=== PATIENT | female | born 1980 | race Caucasian/White ===

== ENCOUNTER 2024-01-16 12:46 | Outpatient (CLI) | payer BC, SELFPAY ==
--- NOTE | 2024-01-16 12:52 | CT_ITS ---
FINAL REPORT CLINICAL HISTORY: HEMATURIA, RT FLANK PAIN COMPARISON: None FINDINGS: Axial CT images of the abdomen and pelvis were obtained without intravenous contrast. Coronal and sagittal reformatted images were also obtained.This study was performed with techniques to keep radiation doses as low as reasonably achievable (ALARA). Individualized dose reduction techniques using automated exposure control or adjustment of mA and/or kV according to the patient's size were employed. Abdomen:The lung bases are clear. There is no evidence of renal stone or hydronephrosis.The liver, spleen and pancreas have an unremarkable, unenhanced appearance. No mass or adenopathy is seen. No inflammatory process is identified. Pelvis: Images of the pelvis reveal no evidence of ureteral dilation or ureteral stone.No mass or abnormal fluid collection is identified. An IUD is present in the uterus. There is a low-density in the left adnexa measuring 29 mm in size consistent with an ovarian cyst. IMPRESSION: No renal or ureteral stone, or hydronephrosis. No mass or inflammatory process. 29 mm left ovarian cyst. Reviewed, Interpreted and Dictated by Wilmar Avery III, MD Transcribed by Clara Redman Authenticated and [facility]
== END 2024-01-16 23:59 | disposition home or self-care (01) ==
LOC: RAD 12:49
PROVIDERS: PCP Family Medicine; Visit Provider Family Medicine
DX: R31.9 Hematuria, unspecified (principal); R10.9 Unspecified abdominal pain
CPT/HCPCS: 74176

== ENCOUNTER 2024-01-20 07:27 | Outpatient (CLI) | payer BC, SELFPAY ==
--- NOTE | 2024-01-20 07:31 | US_ITS ---
FINAL REPORT CLINICAL HISTORY: RUQ PAIN FINDINGS: ULTRASOUND RIGHT UPPER QUADRANT Sonographic imaging of the right upper quadrant was obtained. The pancreas is partially obscured. The liver is unremarkable. There is no evidence of gallstones. Minimal sludge is seen in the gallbladder. There is no gallbladder wall thickening. There is no biliary ductal dilatation. The common duct is normal at 2 mm. Limited images of the right kidney are unremarkable. IMPRESSION: Minimal sludge in the gallbladder. Reviewed, Interpreted and Dictated by Ruy Mcclellan MD Transcribed by Yolanda Alejandra Authenticated and [facility]
== END 2024-01-20 23:59 | disposition home or self-care (01) ==
LOC: RAD 07:28
PROVIDERS: PCP Family Medicine; Visit Provider Family Medicine
DX: R10.9 Unspecified abdominal pain (principal)
CPT/HCPCS: 76705

== ENCOUNTER 2024-02-06 10:19 | Outpatient (CLI) | payer BC, SELFPAY ==
[2024-02-06] MEDS: SODIUM CHLORIDE 0.9% 10ML SYR (RAD ONLY) 10 ML IV (10:25)
--- NOTE | 2024-02-06 10:28 | NM_ITS ---
FINAL REPORT TECHNIQUE: 5.25 mCi technetium 90 9M Choletec were administered intravenously. Examination was augmented with 1.9 mcg of CCK. CLINICAL HISTORY: ruq pain 10:25am 5.25 mci tc choletec 1.9 mcg cck FINDINGS: Grayscale images demonstrate a normal distribution of radiopharmaceutical. Sequential images demonstrate progressive accumulation of activity within the gallbladder. Quantitative evaluation was obtained following CCK administration. Calculated ejection fraction is 90%. IMPRESSION: 1. Unremarkable hepatobiliary scan. Authenticated and [facility]
[2024-02-06] MEDS: ISOTOPE CHOLETECH;1 DOSE (UP TO 15 MCI) IV (11:41)
[2024-02-06] MEDS: SINCALIDE 1.9 MCG in 0.9 % SODIUM CHLORIDE 50 ML 100 MCG IV (11:41)
== END 2024-02-06 23:59 | disposition home or self-care (01) ==
LOC: RAD 10:19
PROVIDERS: PCP Family Medicine; Visit Provider Family Medicine
DX: R10.11 Right upper quadrant pain (principal); K82.8 Other specified diseases of gallbladder
CPT/HCPCS: 78227; A9537; J2805